=== PATIENT | male | born 1950 | race Caucasian/White ===

== ENCOUNTER 2017-09-04 22:46 | Emergency (ER) | payer OTHER ==
[2017-09-04 23:06] VITALS: BP 150/69; PULSE 84; TEMP 97.7; BMI 26.4
--- NOTE | 2017-09-04 23:10 | PDOC ---
History of Present Illness - General Chief Complaint: Chest Pain Stated Complaint: CHEST PAINS Time Seen by Provider: 09/04/17 22:56 - History of Present Illness Initial Comments: 09/04/17 23:17 The patient is a 67 year old male who denies any PMH who presents for evaluation of chest pain. The patient reports onset of 7/10 left sided chest pain that he describes as a pressure beginning 2 hours prior to presentation. He reports that he had a similar episode of pain 1 week prior that resolved without intervention. He notes that he takes 2 baby aspirin a day but otherwise denies any other medications. Otherwise he denies any other symptoms including SOB, nausea, vomiting, abdominal pain, or changes with urination or bowel movements. EKG performed in triage demonstrates a concern for acute STEMI in anterior leads. Past History - Past Medical History Allergies/Adverse Reactions: Allergies Allergy/AdvReac Type Severity Reaction Status Date / Time No Known Allergies Allergy Verified 09/04/17 23:43 Home Medications: Ambulatory Orders NK [No Known Home Medication] 09/04/17 - Suicide/Smoking/Psychosocial Hx Smoking History: Former smoker Have you smoked in the past 12 months: No Information on smoking cessation initiated: No Hx Alcohol Use: No Drug/Substance Use Hx: No Review of Systems - Review of Systems Comments:: 09/04/17 23:26 Constitutional: No fevers, chills, fatigue, malaise HEENT: No Rhinorrhea, nasal congestion, Cardiovascular: Chest pain. No syncope, palpitations, lightheadedness Respiratory: No Cough, SOB, Hemoptysis, Gastrointestinal: No Abdominal pain, Nausea, Vomiting, Constipation, Diarrhea, Melena Genitourinary: No Dysuria, Frequency, Urgency, Hesitancy, Hematuria, Flank pain Musculoskeletal: No Myalgia, arthralgia Skin: No rashes, bruising, pallor Neurologic: No Headache, Dizziness, Numbness, Weakness, or Tingling Psychiatric: No Hallucinations. No SI or HI *Physical Exam - Vital Signs Last Vital Signs Temp Pulse Resp BP Pulse Ox 97.7 F 84 18 150/69 100 09/04/17 23:05 09/04/17 23:05 09/04/17 23:05 09/04/17 23:05 09/04/17 23:05 - Physical Exam Comments: 09/04/17 23:27 General Appearance: Nourished. In Moderate Apparent Distress HEENT: EOMI, ОЛЕГ. No Pharyngeal Erythema, Tonsillar Exudate, Tonsillar Erythema Neck: No Cervical Lymphadenopathy Respiratory/Chest: Lungs Clear, Normal Breath Sounds. No Crackles, Rales, Rhonchi, Wheezing Cardiovascular: Regular Rhythm, Regular Rate. No Murmur, Gallops, Rubs Gastrointestinal/Abdominal: Normal Bowel Sounds, Soft. No Guarding, Rebound, Tenderness Musculoskeletal: No CVA Tenderness Extremity: Normal Capillary Refill Integumentary: Normal Color, Dry, Warm Neurologic: Fully Oriented, Alert, Normal Mood/Affect, Normal Response, Heart Score/ECG Review #1 ECG reviewed & interpreted by me at: 23:28 (ACUTE MA/STEMI ST elevations in leads v1-v6) General ECG Interpretation: Sinus Rhythm, Normal Rate, Normal Intervals ED Treatment Course - LABORATORY CBC & Chemistry Diagram: 09/04/17 23:23 09/04/17 23:23 Medical Decision Making - Medical Decision Making 09/04/17 23:28 The patient is a 67 year old male who denies any PMH who presents for evaluation of chest pain. Patient's EKG in triage demonstrates ST elevations in v1-v6 concerning for a STEMI. The patient's symptoms are likely due to an acute STEMI. We have initiated transfer to [facility] and discussed the case with DR. Ruano with cardiology for urgent cardiology consultation and cath. We have obtained cbc, cmp, troponin, coags and started aspirin, a hepirin bolus , plavix, lipitor, and lopressor, and nitroglycern as well as iv fluids. We have stat redded the patient and transportation is en route. 09/04/17 23:35 Transportation has arrived. We discussed the results and the plan with the patient who voiced understanding and is agreeable with the plan. *DC/Admit/Observation/Transfer Diagnosis at time of Disposition: STEMI (ST elevation myocardial infarction) Qualifiers: Involved coronary artery: LAD coronary artery Qualified Code(s): I21.02 - ST elevation (STEMI) myocardial infarction involving left anterior descending coronary artery - Discharge Dispostion Disposition: TRANSFER ACUTE CARE/OTHER HOSP Condition at time of disposition: Guarded - Referrals - Patient Instructions Printed Discharge Instructions: DI for Chest Pain - Post Discharge Activity - Transfer to Acute Care Facility Receiving Facility: [facility] Accepting Physician:: Dr. Ruano
[2017-09-04] MEDS ORDERED: ASPIRIN 81 MG CHEWABLE TABLETS PO ONE ×2 (23:12)
[2017-09-04] MEDS ORDERED: CLOPIDOGREL BISULFATE 300 MG TABLET PO ONE (23:12)
[2017-09-04] MEDS ORDERED: ASPIRIN 325 MG TABLET ONE (23:17)
[2017-09-04] MEDS ORDERED: NITROGLYCERIN SUBLINGUAL 1/150 0.4 MG TAB SL PRN (23:18)
[2017-09-04] MEDS ORDERED: METOPROLOL TARTRATE 5 MG/5 ML VIAL IVPUSH ONE ×3 (23:18→23:19)
[2017-09-04] MEDS ORDERED: ATORVASTATIN CA 80 MG TABLET (FP) PO ONE (23:18)
[2017-09-04] MEDS ORDERED: SODIUM CHLORIDE 500 ML IV STA (23:20)
[2017-09-04] MEDS ORDERED: HEPARIN NA (PORCINE) 5,000 UNITS/ML 1ML VIAL IVPUSH PRN (23:25)
--- NOTE | 2017-09-04 23:29 | PDOC ---
Attending Attestation - Resident Resident Name: Merrick Villeda - ED Attending Attestation I have performed the following: I have examined & evaluated the patient, The case was reviewed & discussed with the resident, I agree w/resident's findings & plan - HPI HPI: 09/04/17 23:25 Pt comes with CP x 2 hrs. - Physicial Exam PE: 09/04/17 23:25 Pt comes with chest pain x 2 hrs. He has a STEMI; We immediately called [facility]. Alex Almazan and [facility] are aware; [facility] is arranging transfer and Plavix, Asa, Heparin, toprol IV, and Nitro and O2 given. - Medical Decision Making 09/04/17 23:40 [facility] is here and taking pt to [facility] presently. Pt's BP is 128/71 HR 81 O2sat 100% 09/04/17 23:40 Pt being transferred to Dr. Almazan and Dr Mariana Costa
[2017-09-04] MEDS ORDERED: HEPARIN INFUSION - 25,000 UNITS/500 ML INFUS.BAG IVPB ONE (23:30)
[2017-09-04] MEDS ORDERED: SODIUM CHLORIDE 1,000 ML IV SCH (23:30)
[2017-09-04] MEDS ORDERED: HEPARIN NA (PORCINE) 5,000 UNITS/ML 1ML VIAL ONE (23:30)
[2017-09-04 23:38] LABS: BASO % 0.4 % (0-2.0); EOS % 0.5 % (0-4.5); HEMATOCRIT 46.8 % (35.4-49); HEMOGLOBIN 15.6 GM/dL (11.7-16.9); LYMPH % 14.6 % (8-40); MCH 30.6 pg (25.7-33.7); MCHC 33.4 g/dl (32.0-35.9); MEAN CELL VOLUME 91.8 fl (80-96); MEAN PLT VOLUME 11.8 fl (7.5-11.1); MONO % 5.2 % (3.8-10.2); NEUT % 79.3 % (42.8-82.8); PLATELET COUNT 121 K/MM3 (134-434); RDW 13.8 % (11.9-15.9); WHITE BLOOD COUNT 12.4 K/mm3 (4.0-10.0)
[2017-09-04 23:56] LABS: ALBUMIN 3.9 g/dl (3.4-5.0); ANION GAP 13 (8-16); BILIRUBIN,TOTAL 0.5 mg/dL (0.2-1.0); BLOOD UREA NITROGEN 27 mg/dL (7-18); CALCIUM 9.2 mg/dL (8.5-10.1); CHLORIDE 105 mmol/L (98-107); CO2 25 mmol/L (21-32); CREATININE 1.4 mg/dL (0.7-1.3); GLUCOSE,RANDOM 154 mg/dL (74-106); POTASSIUM 3.5 mmol/L (3.5-5.1); SGOT/AST 21 U/L (15-37); SGPT/ALT 34 U/L (12-78); SODIUM 143 mmol/L (136-145); TOT PROT 7.4 g/dl (6.4-8.2)
[2017-09-04 23:59] LABS: ALK PHOS 92 U/L (45-117)
[2017-09-05 00:36] LABS: INR 1.1 (0.82-1.09); PROTHROMBIN TIME (PATIENT) 12.4 SEC (9.98-11.88)
--- NOTE | 2017-09-05 10:58 | EKG ---
Test Reason : Blood Pressure : / mmHG Vent. Rate : 083 BPM Atrial Rate : 083 BPM P-R Int : 172 ms QRS Dur : 092 ms QT Int : 394 ms P-R-T Axes : 065 071 061 degrees QTc Int : 462 ms NORMAL SINUS RHYTHM LOW VOLTAGE QRS ANTERIOR INFARCT , POSSIBLY ACUTE INFEROLATERAL INJURY PATTERN ACUTE NE / STEMI ABNORMAL ECG NO PREVIOUS ECGS AVAILABLE CLINICAL CORRELATION IS RECOMMENDED Confirmed by KANE LOGAN, MAGGIE ([id number]) on 09/05/2017 10:57:58 AM Referred By: Confirmed By:MAGGIE MIDDLETON MD
== END 2017-09-05 00:07 | disposition short-term general hospital (02) ==
LOC: JER 22:46
PROC: 3E0337Z Introduction of Electrolytic and Water Balance Substance into Peripheral Vein, Percutaneous Approach (ICD-10-PCS; principal; 2017-09-04)
PROC: 3E033GC Introduction of Other Therapeutic Substance into Peripheral Vein, Percutaneous Approach (ICD-10-PCS; 2017-09-04)
DX: I21.02 ST elevation (STEMI) myocardial infarction involving left anterior descending coronary artery (principal)
CPT/HCPCS: 36415; 80053; 82550; 84484; 85025; 85610; 85730; 93005; 93010; 99284-25